=== PATIENT | male | born 1990 ===

== ENCOUNTER 2023-02-27 18:00 | Outpatient (CLI) | payer BC | END 2023-02-27 18:01 | disposition home or self-care (01) | LOC: SLEEPLAB 18:00 | PROVIDERS: ATTEND Internal Medicine Critical Care Medicine | DX: G47.33 Obstructive sleep apnea (adult) (pediatric) (principal); F41.9 Anxiety disorder, unspecified; I10 Essential (primary) hypertension; J45.909 Unspecified asthma, uncomplicated; G47.00 Insomnia, unspecified | CPT/HCPCS: 95800 ==